=== PATIENT | male | born 1975 | race Caucasian/White ===

== ENCOUNTER 2022-10-13 19:13 | Emergency (ER) | payer MEDICAID ==
[2022-10-13] MEDS ORDERED: hydrOXYzine HCl 25 MG Tab PO ONE (22:44)
== END 2022-10-13 23:25 | disposition other institution (70) ==
LOC: JP.ED 19:13
DX: F33.41 Major depressive disorder, recurrent, in partial remission (principal); F41.9 Anxiety disorder, unspecified; F15.90 Other stimulant use, unspecified, uncomplicated; F10.10 Alcohol abuse, uncomplicated
CPT/HCPCS: 99285; A9270-GY